=== PATIENT | male | born 1975 | race Two or more races ===

== ENCOUNTER 2018-12-23 14:26 | Emergency (ER) | payer OTHER ==
[~2018-12-23] VITALS: Ht 167.6 cm; Wt 77.1 kg
[2018-12-23 14:36] VITALS: BP 148/97
--- NOTE | 2018-12-23 14:36 | NUR ---
ED Nurse Note: pt walked in to ED due to pain on right knee since Mon. per pt, pain gets worse. pt pushed some heavy object at work. seen by PCP and [place] [facility] yesterday. per pt, work place sent him to [facility] for further eval. ambulatory with minimal assist. AAO x4. respirations even and non-labored noted. will wait for the further order.
[2018-12-23] MEDS ORDERED: NKM (14:41)
--- NOTE | 2018-12-23 15:44 | Emergency Room Report ---
History of Present Illness General Chief Complaint: Lower Extremity Injury Source: Patient (Jeancarlos Case) Present Illness HPI 43-year-old male with history of hypertension currently controlled with medication here complaining of pain and swelling right knee x5 days. 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 Started feeling more pain the following day. Went to his primary care provider, x-ray was done and no fracture was seen, and was given a knee immobilizer. Patient also has crutches. It is rating her pain 7 out of 10 and indicating that 2 days ago when he started feeling better he started doing a lot of heavy lifting and applying more pressure to his knee when he noticed that his pain is increasing again. Denies any pain radiation, tingling and numbness. Denies other injuries , chest pain, shortness of breath, palpitation, calf tenderness, and other associated symptoms. Is able to move his toes and no motor or sensory deficits noted. Has been applying ice, topical ointments, and been taking over-the- counter ibuprofen with minimal relief. (Jeancarlos Case) Allergies: Coded Allergies: No Known Allergies (Unverified , 12/23/18) Patient History Past Medical History: see triage record Past Surgical History: unable to obtain Pertinent Family History: none Immunizations: UTD Reviewed Nursing Documentation: PMH: Agreed; PSxH: Agreed (Jeancarlos Case) Nursing Documentation-PMH Past Medical History: No Stated History Hx Diabetes: Yes (Jeancarlos Case) Review of Systems All Other Systems: negative except mentioned in HPI (Jeancarlos Case) Physical Exam Vital Signs Date Time Temp Pulse Resp B/P (MAP) Pulse Ox O2 Delivery O2 Flow Rate FiO2 12/23/18 14:36 98.2 105 18 148/97 (114) 98 Room Air Sp02 EP Interpretation: reviewed, normal General Appearance: no apparent distress, alert, GCS 15, non-toxic Head: normocephalic, atraumatic Eyes: bilateral eye normal inspection, bilateral eye PERRL ENT: hearing grossly normal, normal pharynx, no angioedema, normal voice Neck: full range of motion, supple/symm/no masses Respiratory: chest non-tender, lungs clear, normal breath sounds, no rhonchi, speaking full sentences Cardiovascular #1: regular rate, rhythm, no edema, no murmur, normal capillary refill Cardiovascular #2: 2+ dorsalis pedis (R), 2+ dorsalis pedis (L) Gastrointestinal: normal bowel sounds, non tender, soft, non-distended, no guarding, no rebound Rectal: deferred Genitourinary: normal inspection, no CVA tenderness Musculoskeletal: back normal, digits/nails normal, normal range of motion, non- tender, no calf tenderness, pelvis stable, swelling - Right knee, no bony tenderness, other - Negative Lisa's, ACL and PCL are intact Neurologic: alert, oriented x3, responsive, motor strength/tone normal, sensory intact, speech normal Psychiatric: judgement/insight normal, memory normal, mood/affect normal, no suicidal/homicidal ideation Reflexes: 2+ knee (R), 2+ knee (L) Skin: no rash, other - Mild ecchymosis noted patellar area Lymphatic: no adenopathy (Jeancarlos Case) Medical Decision Making PA Attestation All diagnoses and treatment plans were reviewed and discussed with my supervising physician Dr. Carrasco (Jeancarlos Case) Diagnostic Impression: Primary Impression: Right knee sprain ER Course 43-year-old male with history of hypertension currently controlled with medication here complaining of pain and swelling right knee x5 days. 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 Started feeling more pain the following day. Went to his primary care provider, x-ray was done and no fracture was seen, and was given a knee immobilizer. Patient also has crutches. It is rating her pain 7 out of 10 and indicating that 2 days ago when he started feeling better he started doing a lot of heavy lifting and applying more pressure to his knee when he noticed that his pain is increasing again. Denies any pain radiation, tingling and numbness. Denies other injuries , chest pain, shortness of breath, palpitation, calf tenderness, and other associated symptoms. Is able to move his toes and no motor or sensory deficits noted. Has been applying ice, topical ointments, and been taking over-the- counter ibuprofen with minimal relief. Ddx considered but are not limited to: Knee sprain, strain, fracture, contusion , meniscus tear injury Vital signs: are WNL, pt. is afebrile H&PE are most consistent with: Right knee sprain ORDERS: Knee x-ray, ibuprofen, Voltaren gel ER intervention: Patient was assisted on reapplying the knee immobilizer. DISCHARGE: At this time pt. is stable for d/c to home. Will provide printed patient care instructions, and any necessary prescriptions. Care plan and follow up instructions have been discussed with the patient prior to discharge. 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 A copy of the signed Worker's Compensation paperwork was given to the patient. (Jeancarlos Case) Other X-Ray Diagnostic Results Other X-Ray Diagnostic Results : X-Ray ordered: Right knee # of Views/Limited Vs Complete: 3 View Indication: Swelling EP Interpretation: Yes PA Xray: Interpretation reviewed, by supervising MD, and agrees with findings. Interpretation: no dislocation, no fractures Impression: No acute disease Electronically Signed by: Jeancarlos Baum PA-C (Jeancarlos Case) Other X-Ray Diagnostic Results : Electronically Signed by: Benitez Murphy documentation of Xray reviewed by me and is accurate, Juan Carrasco MD (Juan Carrasco MD) Last Vital Signs Date Time Temp Pulse Resp B/P (MAP) Pulse Ox O2 Delivery O2 Flow Rate FiO2 12/23/18 14:36 98.2 105 18 148/97 (114) 98 Room Air (Jeancarlos Case) Disposition: HOME, SELF-CARE Condition: Stable Scripts Diclofenac Sodium (VOLTAREN) 100 Gm Gel..gram. 2 GM TP TID, #100 GM Prov: Jeancarlos Case 12/23/18 Ibuprofen (Ibu) 800 Mg Tablet 800 MG PO TID, #30 TAB Prov: Jeancarlos Case 12/23/18 Patient Instructions: Knee Sprain Additional Instructions: Keep knee immobilizer on take medication as directed follow-up with your primary care provider if worsening symptoms or any new onset of tingling sensation MRI may be needed return to the emergency room if more pain. Jeancarlos Case Dec 23, 2018 15:44 Juan Carrasco MD Dec 24, 2018 04:48
[2018-12-23] MEDS ORDERED: IBU800 MG PO (15:45)
[2018-12-23] MEDS ORDERED: VOLTAREN100 G1 TP (15:45)
--- NOTE | 2018-12-23 15:57 | Diagnostic Imaging Report ---
Indication: Right knee Pain 3 views of the right knee were obtained. Findings: There is opacification and distention of the suprapatellar pouch consistent with a joint effusion. The bones are osteopenic. There is a deformity of the lateral tibial plateau and fibular head likely indicative of a old injury. Suggestion of prominent subchondral cyst formation noted. Superimposed osteoarthritis with narrowing of the joint space demonstrated. IMPRESSION: Large joint effusion. Post fracture deformity of the lateral tibial plateau with superimpose arthrosis. No definite evidence of an acute fracture
--- NOTE | 2018-12-23 16:10 | NUR ---
ED Nurse Note: Patient is being discharged from medical care. D/C instruction and prescription given to patient. All questions answered. Patient arrived here with knee immoblizer to right knee, which was wrapped with ALTHEA wrap, ambulating out with steady gait.
== END 2018-12-23 16:10 | disposition home or self-care (01) ==
LOC: EMR 15:43
DX: S83.91XA Sprain of unspecified site of right knee, initial encounter (principal); X58.XXXA Exposure to other specified factors, initial encounter; Y92.9 Unspecified place or not applicable; E11.9 Type 2 diabetes mellitus without complications
CPT/HCPCS: 99283